=== PATIENT | female | born 1970 | race African-American/Black ===

== ENCOUNTER 2019-01-21 14:39 | Emergency (ER) | payer OTHER ==
[~2019-01-21] VITALS: Ht 147.3 cm; Wt 90.7 kg
[2019-01-21 19:15] VITALS: BP 145/55
== END 2019-01-21 19:15 ==
LOC: ER 14:39
DX: T82.868A Thrombosis due to vascular prosthetic devices, implants and grafts, initial encounter (principal); E10.22 Type 1 diabetes mellitus with diabetic chronic kidney disease; N18.6 End stage renal disease; Z99.2 Dependence on renal dialysis; Z95.5 Presence of coronary angioplasty implant and graft; Z89.512 Acquired absence of left leg below knee; Z89.511 Acquired absence of right leg below knee; Z88.0 Allergy status to penicillin; Z91.040 Latex allergy status; Y83.8 Other surgical procedures as the cause of abnormal reaction of the patient, or of later complication, without mention of misadventure at the time of the procedure; Y92.89 Other specified places as the place of occurrence of the external cause